=== PATIENT | male | born 1985 | race Caucasian/White ===

== ENCOUNTER 2019-06-11 20:54 | Emergency (ER) | payer SELFPAY ==
[~2019-06-11] VITALS: Ht 188 cm; Wt 104.3 kg
[2019-06-11 20:54] VITALS: BP_SYST 136
[2019-06-11] MEDS ORDERED: NACL 0.9% 1,000 ML IV ONE (21:15)
== END 2019-06-11 21:30 | disposition left against medical advice (07) ==
LOC: SED 20:54
DX: T40.1X1A Poisoning by heroin, accidental (unintentional), initial encounter (principal); Y92.89 Other specified places as the place of occurrence of the external cause
CPT/HCPCS: 99283